=== PATIENT | male | born 1955 | race Caucasian/White ===

== ENCOUNTER 2022-02-05 22:39 | Inpatient (IN) | payer MEDICARE, OTHER ==
[~2022-02-05] VITALS: Ht 170.2 cm; Wt 65.8 kg
--- NOTE | 2022-02-05 22:46 | NUR ---
Pt brought into ER from [facility] for medical clearance. Pt is on a 5250 for GD that started on 02/03, up 02/17. Pt is AOx1. Ambulatory. Calm but needs constant redirection. Pt is noted to be mumbling to himself.
[2022-02-05] MEDS ORDERED: SILV50CR32 TP (23:02)
[2022-02-05] MEDS ORDERED: OLAN5TAB70 PO ×2 (23:02)
[2022-02-05 23:15] VITALS: BP 117/72
--- NOTE | 2022-02-05 23:25 | NUR ---
Dr. Hernandez at bedside for MSE
[2022-02-05] MEDS ORDERED: OLANZAPINE 10 MG VIAL IM ONE ×2 (23:45)
--- NOTE | 2022-02-06 00:32 | NUR ---
Report given to Fahad COSME
[2022-02-06] MEDS ORDERED: MAG HYDROX/AL HYDROX/SIMETH 30 ML LIQUID UDC PO PRN (01:15)
[2022-02-06] MEDS ORDERED: MAGNESIUM HYDROXIDE 30 ML LIQUID UDC PO PRN (01:15)
--- NOTE | 2022-02-06 01:17 | NUR ---
Pt. admitted to [facility] room 137A, under care of Dr. Mcmahan and Dr. Ch. Belongs List completed
--- NOTE | 2022-02-06 01:18 | NUR ---
Security escorted to [facility]
[2022-02-06] MEDS: TEMAZEPAM 7.5 MG CAPSULE PO PRN ×2 (01:40→23:03)
[2022-02-06] MEDS: LORAZEPAM 1 MG TABLET PO PRN ×2 (03:02→12:59)
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
[2022-02-06 07:42] VITALS: BP 119/65
[2022-02-06] MEDS ORDERED: SILVER SULFADIAZINE 1% CREAM 50 GM TP SCH (09:00)
--- NOTE | 2022-02-06 09:33 | NUR ---
WOUND CARE CONSULT: PT PRESENTS WITH STAGE 3 SACRAL ULCER, PRESENT ON ADMISSION. RECOMMEND SURGICAL CONSULT. DR ODIN SALCEDO CALLED. RECOMMENDATGIONS MADE FOR SKIN PROTECTION AND WOUND CARE. DISCUSSED WITH NURSING STAFF. IN AGREEMENT WITH PLAN OF CARE. Addendum: 02/06/22 at 0934 by ELLIOT MAURER RN Amended: Links added.
--- NOTE | 2022-02-06 11:00 | NUR ---
Gps/Briefcase Sewer- Had late breakfast, awakened patient, assisted with breakfast, not initiating to feed self . Mumbles, confused. Wound Care Nurse Zaria RN came in to check wound in his sacrococcygeal area, stages 3, recommendation was made , site cleansed with NS, pat dry, hydrogel applied as recommended, covered with foam , secured with tapes. Patient removed his dressings after awhile, , removed diaper , threw coffee at the ULTRASONOGRAPHER Fanta, threw liquids stuff on the floor. Patient observed urinating in the sink in his room, tried to redirect patient but difficulty following directions.
[2022-02-06] MEDS: DIVALPROEX 500 MG TABLET.DR PO SCH ×2 (11:15→17:22)
[2022-02-06] MEDS: OLANZAPINE 5 MG TABLET PO SCH ×2 (12:12→21:08)
--- NOTE | 2022-02-06 13:57 | NUR ---
Gps/Guinea Pig Breeder- Walks around , goes room to room, gets irritable, figity , fiesty being redirected, mumbles, does not have any clue what to do, when taken to the bathroom , will not come out of the bathroom.. Continue to note patient mumbles , and staff has difficulty redirecting patient. Kept patient in the lauren-chair , was disruptive in the group therapy
[2022-02-06 14:14] LABS: HEMATOCRIT 39.5 % (36.7-47.1); MEAN CORPUSCULAR HEMOGLOBIN 32.4 uug (23.8-33.4); MEAN CORPUSCULAR VOLUME 93.1 fL (73.0-96.2); PLATELET COUNT (AUTO) 333 K/uL (152-348)
[2022-02-06 14:26] LABS: BILIRUBIN,TOTAL 0.6 mg/dL (0.2-1.0); CREATININE 0.7 mg/dL (0.6-1.3); MAGNESIUM 2.3 mg/dL (1.8-2.4); POTASSIUM 3.9 mmol/L (3.5-5.1); TOTAL PROTEIN, SERUM 6.7 g/dL (6.4-8.2)
--- NOTE | 2022-02-06 15:38 | NUR ---
ERICK Admit Source: Pt was brought to [facility] on a 5250 hold for a danger to himself and gravely disabled adult. Pt appears homeless. ERICK contacted pt's family member Mai and was unable to speak to her due to a disconnected number. ERICK will continue to work with the pt, family and MD to ensure a safe and proper discharge plan.
--- NOTE | 2022-02-06 15:38 | NUR ---
ERICK Initial Discharge Note: Pt was brought to [facility] on a 5250 hold for a danger to himself and gravely disabled adult. Pt appears homeless. ERICK contacted pt's family member Mai and was unable to speak to her due to a disconnected number. ERICK will continue to work with the pt, family and MD to ensure a safe and proper discharge plan.
--- NOTE | 2022-02-06 16:44 | NUR ---
Gps/Paper Production Engineer- Patient was trying to climbed out of his lauren-chair , difficulty redirecting patient, , confused, disoriented, not making any sense . Monitor safety , gets resistive and appeared to be angry when trying to redirect. Patient ambulates around wanders from room to room.
[2022-02-06] MEDS: SILVER SULFADIAZINE 1% CREAM 50 GM TP SCH (17:00)
[2022-02-06 17:14] VITALS: BP 107/70
--- NOTE | 2022-02-06 18:37 | NUR ---
Gps/Candy Butcher- Remains oob in the dinning room , figity, checking into books and magazines, remains to mumbles trying to communicate but sentences and words are unclear , staff uses gestures to instruct patient for directions , and tasks , does not comprehend
[2022-02-06 20:13] VITALS: BP 116/57
[2022-02-07] MEDS: LORAZEPAM 1 MG TABLET PO PRN (00:14)
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
[2022-02-07] MEDS: DIVALPROEX 500 MG TABLET.DR PO SCH (09:11)
[2022-02-07] MEDS: OLANZAPINE 5 MG TABLET PO SCH ×2 (09:12→20:09)
[2022-02-07] MEDS: SILVER SULFADIAZINE 1% CREAM 50 GM TP SCH ×2 (09:12→17:00)
[2022-02-07 11:24] LABS: BILIRUBIN,TOTAL 0.6 mg/dL (0.2-1.0); CREATININE 0.7 mg/dL (0.6-1.3); TOTAL PROTEIN, SERUM 7.4 g/dL (6.4-8.2)
--- NOTE | 2022-02-07 12:47 | NUR ---
Gps/High School Admissions Representative- Re -offered routine meds, kept removing /spitting it out, instructed, encouraged to swallow his medications, , noting patient starting to get angry , facial expressions eyes wide open, unclear words, emphasizing . Approchaed patient in a calm manner , redirecting patient using gestures
--- NOTE | 2022-02-07 16:00 | NUR ---
Gps/Back Winder- Wanders around , in the activity room figity , pushing and rearranging chair and tables. Difficulty redirecting patient
[2022-02-07] MEDS ORDERED: diphenhydrAMINE 50 MG/1 ML VIAL IM ONE (16:30)
[2022-02-07] MEDS ORDERED: LORAZEPAM 2 MG/1 ML VIAL IM ONE (16:30)
[2022-02-07] MEDS ORDERED: HALOPERIDOL 5 MG TABLET PO ONE (16:30)
[2022-02-07] MEDS ORDERED: HALOPERIDOL LACTATE 5 MG/1 ML VIAL IM ONE (16:45)
--- NOTE | 2022-02-07 16:51 | NUR ---
Gps/Spooler Rubber Strand As commercial insurance underwriter openned the refrigerator for apple sauce, patient came towards the commercial insurance underwriter , trying to grabbed her arm and trying to get the keys from her, pushing the refrigerator to block commercial insurance underwriter from getting out the door.Engineering Scientist called for help . Web Communications Specialist Jade called Dhiraj LUNCHROOM OPERATOR was informed of the patient's behavior, orders received,.
[2022-02-07] MEDS: DIVALPROEX SPRINKLE 125 MG CAP.SPRINK PO SCH (17:00)
--- NOTE | 2022-02-08 06:40 | NUR ---
GPS: Remain uncooperative with care, patient is very disorganized. slept 6.15 hrs through the night. resting in bed comfortably.
[2022-02-08] MEDS: OLANZAPINE 5 MG TABLET PO SCH ×2 (08:33→21:49)
[2022-02-08] MEDS: DIVALPROEX SPRINKLE 125 MG CAP.SPRINK PO SCH ×2 (08:33→17:32)
[2022-02-08] MEDS ORDERED: LORAZEPAM 2 MG/1 ML VIAL IM ONE (09:00)
[2022-02-08] MEDS ORDERED: HALOPERIDOL LACTATE 5 MG/1 ML VIAL IM ONE (09:00)
[2022-02-08] MEDS ORDERED: diphenhydrAMINE 50 MG/1 ML VIAL IM ONE (09:00)
[2022-02-08] MEDS: SILVER SULFADIAZINE 1% CREAM 50 GM TP SCH ×2 (09:10→17:00)
--- NOTE | 2022-02-08 09:15 | NUR ---
Gps/Other Spatial Scientist- Patient started to urinate in front of the front door,, difficulty redirecting patient, came sitting on the front by the Nurses Station, spilling water all over the place, resistive to care, confused, disoriented, poor insight Machine Loader Jade received order from Dhiraj FAINA .Patient assisted, to his room, into bed . Continue to monitor safety.
--- NOTE | 2022-02-08 09:37 | NUR ---
Gps/Web Services Developer- Garcia Lyon DNP in to see patient, was informed of labs. results,(K+ 3.2, Bun 23, elevated AST,ALT)orders received.
[2022-02-08] MEDS ORDERED: POTASSIUM CHLORIDE 20 MEQ TAB.PRT.SR PO ONE (09:45)
[2022-02-08] MEDS: ENSURE ENLIVE (VAN) 240 ML LIQUID PO SCH ×3 (10:15→17:33)
[2022-02-08] MEDS: LORAZEPAM 1 MG TABLET PO PRN (20:50)
[2022-02-08] MEDS: TEMAZEPAM 7.5 MG CAPSULE PO PRN (23:08)
--- NOTE | 2022-02-09 06:33 | NUR ---
Received to care, ambulating/wandering about unit with a semi steady gait. Easily agitated. Compliant with medications. PRN ativan and restoril were given at bedtime. Assisted to bed around midnight, and slept most of the night. Assisted with urinal. No distress noted.
[2022-02-09] MEDS: SILVER SULFADIAZINE 1% CREAM 50 GM TP SCH ×2 (09:00→17:00)
[2022-02-09] MEDS: LORAZEPAM 1 MG TABLET PO PRN ×3 (09:02→23:12)
[2022-02-09] MEDS: ENSURE ENLIVE (VAN) 240 ML LIQUID PO SCH ×3 (09:02→17:00)
[2022-02-09] MEDS: OLANZAPINE 5 MG TABLET PO SCH ×2 (09:02→21:16)
[2022-02-09] MEDS: DIVALPROEX SPRINKLE 125 MG CAP.SPRINK PO SCH ×2 (09:02→18:10)
[2022-02-09] MEDS ORDERED: OLANZAPINE 5 MG TABLET PO ONE (17:00)
--- NOTE | 2022-02-09 18:34 | NUR ---
GPS: Nursing Notes: Destructive Behavior To Others: Patient is awake and responding to his name, poor insight, impaired judgment, resistant with nursing care, confused, disoriented, disorganized, laying down on the floor, pacing in his room half naked, urinating on the floor, resistant with nursing care, unpredictable behavior, labile, resistant with nursing care, unable to formulate a viable plan for self care, continue with treatment plan.
[2022-02-09] MEDS ORDERED: OLANZAPINE 5 MG TABLET PO SCH (21:00)
[2022-02-10] MEDS: TEMAZEPAM 7.5 MG CAPSULE PO PRN (00:56)
--- NOTE | 2022-02-10 05:24 | NUR ---
Received to care, in dining room, mumbling incoherently, carrying around a shopping bsg containing his things. No interactions with peers. No aggressive behavior noted.Compliant with medications. PRN Ativan and Restoril, were given at bedtime, but he wandered abouut the unit, slept in a chair in the hallway, eventually making it to his room, and going to sleep, towards the end of the night. as of now, he continues to sleep. No distress noted.
[2022-02-10 08:00] VITALS: BP 106/75
[2022-02-10] MEDS: LORAZEPAM 1 MG TABLET PO PRN ×2 (08:12→21:58)
[2022-02-10] MEDS: DIVALPROEX SPRINKLE 125 MG CAP.SPRINK PO SCH ×2 (08:44→17:09)
[2022-02-10] MEDS: OLANZAPINE 5 MG TABLET PO SCH ×3 (08:44→17:09)
[2022-02-10] MEDS: ENSURE ENLIVE (VAN) 240 ML LIQUID PO SCH ×3 (08:44→17:00)
[2022-02-10] MEDS: SILVER SULFADIAZINE 1% CREAM 50 GM TP SCH ×2 (08:45→17:00)
[2022-02-10] MEDS: risperiDONE 1 MG TABLET PO SCH ×2 (12:59→17:11)
--- NOTE | 2022-02-10 13:20 | NUR ---
GPS: Nursing Notes: Destructive Behavior To Others: Patient is awake and responding to his name, impaired judgment, resistant with nursing care, disorganized, episodes of hoarding trash, confused, pressured and slurred speech, redirected and reoriented during shift, unable to formulate a viable plan for self care, unkempt appearance, episodes of laying down on the floor, urinating on the floor, wandering around the unit aimlessly, continue to monitor for safety, continue with treatment plan.
[2022-02-10 16:42] VITALS: BP 114/79
[2022-02-10 19:58] VITALS: BP 111/72
[2022-02-10] MEDS: TEMAZEPAM 15 MG CAPSULE PO SCH (20:24)
--- NOTE | 2022-02-11 05:40 | NUR ---
Received to care, sitting on the flooor of his room, mumbling to himself. Went to sleep, after taking his medications. No distress, noted.
[2022-02-11] MEDS: DIVALPROEX SPRINKLE 125 MG CAP.SPRINK PO SCH ×2 (09:17→17:25)
[2022-02-11] MEDS: ENSURE ENLIVE (VAN) 240 ML LIQUID PO SCH ×3 (09:18→17:25)
[2022-02-11] MEDS: SILVER SULFADIAZINE 1% CREAM 50 GM TP SCH ×2 (09:18→17:00)
[2022-02-11] MEDS: risperiDONE 1 MG TABLET PO SCH ×3 (09:18→17:25)
--- NOTE | 2022-02-11 14:55 | NUR ---
Received patient awake in his room. A/O X 0. Pt. is disoriented, disorganized, flat, confused, no interactive, fixated on rituals such as placing books and food on the floor and taking his medications placed lined up in front of him. Pt. is disheveled and refuses shower. Pt. refuses vital signs. Compliant with medications. Pt. ambulates independently. Denies SI/HI AH/VH. Requires more than minimal assistance with ADL. Pt. gets confused sometimes and pees in the sink and trash bags. Requires frequent prompts and redirection. Reassurance given. Fall and safety precautions implemented.
[2022-02-11] MEDS: TEMAZEPAM 15 MG CAPSULE PO SCH (20:44)
--- NOTE | 2022-02-11 21:35 | NUR ---
received patient in the dayroom. he is noted sitting in a chair. he is A/O x1 he is forgetful, poor eye contact. poor historian. he is noted talking to himself and responding to internal stimuli. mood is irritable. affect is flat. Patient requires multiple redirection multiple reassurance. he is reassured for his safety. safety and fall precautions are in place. he refused V/S. pt was given PO FLUIDS AND SNACKS. will continue to monitor
--- NOTE | 2022-02-12 03:20 | NUR ---
Patient used the restroom. he had a large BM then he stood by his door room and he was noted mumbling and praying. He is now noted sitting in a chair next to his bed, his eyes are closed and he continue mumbling and praying. will continue to monitor.
[2022-02-12] MEDS: LORAZEPAM 1 MG TABLET PO PRN (06:18)
[2022-02-12 07:30] VITALS: BP 120/74
[2022-02-12] MEDS: DIVALPROEX SPRINKLE 125 MG CAP.SPRINK PO SCH ×2 (09:11→16:14)
[2022-02-12] MEDS: risperiDONE 1 MG TABLET PO SCH ×3 (09:15→16:14)
[2022-02-12] MEDS: ENSURE ENLIVE (VAN) 240 ML LIQUID PO SCH ×3 (09:16→16:18)
[2022-02-12] MEDS: SILVER SULFADIAZINE 1% CREAM 50 GM TP SCH ×2 (09:16→16:19)
--- NOTE | 2022-02-12 09:30 | NUR ---
Social Work Coordination of Care: Loan Analyst faxed patient's referral packet including: History and Physical, Consultation, Progress Notes, Medication List and Labs to the following facilities for review and possible mcfp placement: [facility] ([phone]).
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
--- NOTE | 2022-02-12 12:02 | NUR ---
Discharge Update: Shabana from admissions at [facility] ([phone]) contacted and notified that pt is accepted to their facility upon discharge.
--- NOTE | 2022-02-12 15:54 | NUR ---
Gps/Rail Filler- Multiple patches of scabs on his forearms , skin dry and tenting. Had a shower this am, refusing wound care to sacrococcygeal area, silvadene cream was able to applied. Patient wanders around , mumbles poor insight , was able to feed self ind. after set up
[2022-02-12] MEDS: TEMAZEPAM 15 MG CAPSULE PO SCH (21:14)
[2022-02-13] MEDS: LORAZEPAM 1 MG TABLET PO PRN (06:47)
[2022-02-13 07:30] VITALS: BP 122/70
[2022-02-13] MEDS: SILVER SULFADIAZINE 1% CREAM 50 GM TP SCH ×2 (08:54→16:24)
[2022-02-13] MEDS: risperiDONE 1 MG TABLET PO SCH ×3 (08:54→16:44)
[2022-02-13] MEDS: DIVALPROEX SPRINKLE 125 MG CAP.SPRINK PO SCH ×2 (08:54→16:23)
[2022-02-13] MEDS: ENSURE ENLIVE (VAN) 240 ML LIQUID PO SCH ×3 (08:54→16:23)
--- NOTE | 2022-02-13 10:30 | NUR ---
TGps/Shift Supervisor Melting -Refused lab . draws this am,, was rescheduled for tomorrow. report was given to Mark MOYA .
--- NOTE | 2022-02-13 14:57 | NUR ---
Gps/Dial Marker- Constantly needing to be redirected, gets disruptive during his group tx
[2022-02-13 16:00] VITALS: BP 117/64
[2022-02-13 20:00] VITALS: BP 120/55
[2022-02-13] MEDS: TEMAZEPAM 15 MG CAPSULE PO SCH (20:18)
[2022-02-14] MEDS: risperiDONE 1 MG TABLET PO SCH ×3 (08:24→16:40)
[2022-02-14] MEDS: ACETAMINOPHEN 325 MG TABLET PO PRN ×2 (08:24→20:10)
[2022-02-14] MEDS: DIVALPROEX SPRINKLE 125 MG CAP.SPRINK PO SCH ×2 (08:24→16:39)
[2022-02-14] MEDS: ENSURE ENLIVE (VAN) 240 ML LIQUID PO SCH ×3 (08:24→16:40)
[2022-02-14] MEDS: SILVER SULFADIAZINE 1% CREAM 50 GM TP SCH ×2 (08:34→16:40)
--- NOTE | 2022-02-14 13:23 | NUR ---
GPS: Nursing Notes: Destructive Behavior To Others: Patient is awake and responding to his name, gets easily angry and irritable when redirected, episodes of striking out when assisting him with ADL's, continue with pressured and slurred speech, disoriented, disorganized, confused, urinating on self and the floor, unkempt appearance, poor grooming, wandering around the unit aimlessly, intrusive, getting into pt's room, unable to formulate a viable plan for self care, episodes of hoarding trash in a paper bag and carrying it everywhere, redirected and reoriented during shift, setting limits, but unable to follow directions, continue to monitor for safety, continue with treatment plan.
[2022-02-14] MEDS: TEMAZEPAM 15 MG CAPSULE PO SCH (20:11)
[2022-02-14] MEDS: LORAZEPAM 1 MG TABLET PO PRN (21:41)
--- NOTE | 2022-02-15 03:34 | NUR ---
Patient up all night so far. Bizarre behavior, flicking the lights on and off in his room. Washing his pants in the toilet , making loud garbled noises. This appeals writer was however able to give the patient medications without difficulty. Patient continues to refuse VS to be taken and will not tolerate a roommate. Safety Stratiges are in place and staff will keep monitoring the patient for any behavior escalation and aggression.
[2022-02-15 08:04] VITALS: BP 118/72
[2022-02-15] MEDS: DIVALPROEX SPRINKLE 125 MG CAP.SPRINK PO SCH ×2 (08:22→16:27)
[2022-02-15] MEDS: ENSURE ENLIVE (VAN) 240 ML LIQUID PO SCH ×3 (08:23→16:28)
[2022-02-15] MEDS: SILVER SULFADIAZINE 1% CREAM 50 GM TP SCH ×2 (08:23→16:28)
[2022-02-15] MEDS: risperiDONE 1 MG TABLET PO SCH ×3 (08:23→16:28)
[2022-02-15] MEDS: ACETAMINOPHEN 325 MG TABLET PO PRN (08:23)
--- NOTE | 2022-02-15 11:20 | NUR ---
GPS: Nursing Notes: Destructive Behavior To Others: Patient is awake and responding to his name, impaired judgment, resistant with nursing care, episodes of striking out when assisting him with ADL's, bizarre behavior, urinating on self, pacing in his room half naked, washing his pants in the sink, redirected and reoriented during shift, setting limits, but unable to follow directions, pressured and slurred speech, gets easily angry when redirected, poor insight, continue to monitor for safety, continue with treatment plan.
[2022-02-15 16:13] VITALS: BP 149/79
[2022-02-15 19:32] VITALS: BP 101/54
[2022-02-15] MEDS ORDERED: TRAZODONE 50 MG TABLET PO SCH (21:00)
[2022-02-15] MEDS: TEMAZEPAM 15 MG CAPSULE PO SCH (21:21)
[2022-02-16 08:00] VITALS: BP 138/76
[2022-02-16] MEDS: DIVALPROEX SPRINKLE 125 MG CAP.SPRINK PO SCH ×2 (08:00→17:30)
[2022-02-16] MEDS: SILVER SULFADIAZINE 1% CREAM 50 GM TP SCH ×2 (08:01→17:00)
[2022-02-16] MEDS: risperiDONE 1 MG TABLET PO SCH ×3 (08:01→17:30)
[2022-02-16] MEDS: ENSURE ENLIVE (VAN) 240 ML LIQUID PO SCH ×3 (08:08→17:32)
--- NOTE | 2022-02-16 15:42 | NUR ---
Received patient awake in his room. Pt. is responding a internal stimuli, slurred speech, does not interact with others. odd behaviors such as peeing in the TV room sink, being naked while walking in the hallway, putting all food or sheets on the floor. Patient is cooperative with care, and compliant with medications. Incontinent. Requires more than minimal assistance with ADL. Pt. appearance is dirty and disheveled, refuses shower. Requires frequent prompts and redirection. Reassurance given. Fall and safety precautions implemented.
[2022-02-16 16:39] VITALS: BP 111/74
[2022-02-16 19:52] VITALS: BP 126/72
[2022-02-16] MEDS: TEMAZEPAM 15 MG CAPSULE PO SCH (20:45)
[2022-02-16] MEDS ORDERED: risperiDONE 2 MG TABLET PO SCH (21:00)
--- NOTE | 2022-02-17 06:47 | NUR ---
Patient awake hyperverbal, appears responding to internal stimuli, Patient mumbles word, unable to care have meaning conversation, stayed in his room most the night, no complain of pain, cooperative with medications and care at this time. cont to monitor.
[2022-02-17 07:30] VITALS: BP 124/85
[2022-02-17 08:18] LABS: HEMATOCRIT 38.2 % (36.7-47.1); MEAN CORPUSCULAR HEMOGLOBIN 31.9 uug (23.8-33.4); MEAN CORPUSCULAR VOLUME 94.6 fL (73.0-96.2); PLATELET COUNT (AUTO) 345 K/uL (152-348)
[2022-02-17] MEDS: DIVALPROEX SPRINKLE 125 MG CAP.SPRINK PO SCH (08:33)
[2022-02-17] MEDS: BENZTROPINE MESYLATE 0.5 MG TABLET PO SCH ×2 (08:34→12:29)
[2022-02-17] MEDS: ENSURE ENLIVE (VAN) 240 ML LIQUID PO SCH ×2 (08:34→12:30)
[2022-02-17] MEDS: risperiDONE 1 MG TABLET PO SCH ×2 (08:34→12:29)
[2022-02-17] MEDS: SILVER SULFADIAZINE 1% CREAM 50 GM TP SCH (08:34)
[2022-02-17 08:57] LABS: ALANINE AMINOTRANSFERASE 21 U/L (16-63); ALKALINE PHOSPHATASE 54 U/L (50-136); ASPARTATE AMINOTRANSFERASE 17 U/L (15-37); BILIRUBIN,TOTAL 0.4 mg/dL (0.2-1.0); CARBON DIOXIDE 29 mmol/L (21-32); CHLORIDE 103 mmol/L (98-107); CREATININE 0.7 mg/dL (0.6-1.3); GLUCOSE 88 mg/dL (74-106); POTASSIUM 4.3 mmol/L (3.5-5.1); TOTAL PROTEIN, SERUM 6.8 g/dL (6.4-8.2); UREA NITROGEN, BLOOD 13 mg/dL (7-18)
--- NOTE | 2022-02-17 08:58 | NUR ---
ERICK Discharge Note: Pt will be discharged to [facility] [address] [place] [address] ([phone]) via Ambulance transportation at 11AM. ERICK spoke with admin coordinator, Agustín at the facility who states they are ready to accept the patient today. Pt is aware and agreeable with discharge plans. Pt is alert and oriented x0, is unable to plan for self-care at this time; however, is willing to accept care at SNF. Pt denies any suicidal or homicidal ideation. Pt will follow-up at the facility with Psychiatrist, Dr. Mcmahan and Corrective Therapist, Dr. Glover. Pt presents with calm mood and congruent affect. PHARMACY: [place] ([phone] [address] [place] [address]. Patient signed the homeless waiver upon discharge and a copy was placed in the chart. Homeless resources were provided and include [address] information line for shelters and homeless resources. A copy of all resources given to patient was also placed in the chart.
[2022-02-17] MEDS ORDERED: CEphaleXIN 500 MG CAPSULE PO ONE (10:15)
--- NOTE | 2022-02-17 10:37 | NUR ---
GPS: Nursing Notes: Refuse for Pictures to be Taken: Patient is refusing for pictures to be taken of his wound and extremity, uncooperative at this time, continue with discharge process.
[2022-02-17 12:21] LABS: VALPROIC ACID < 3 ug/mL (50-100)
[2022-02-17] MEDS: ACETAMINOPHEN 325 MG TABLET PO PRN (12:29)
--- NOTE | 2022-02-17 13:20 | NUR ---
ALL LAB RESULT REPOTED TO DR. MATAMOROS , PATIENT DELIMBER OPERATOR NOW VIA AMBULANCE TO SNF.
--- NOTE | 2022-02-17 13:30 | NUR ---
GPS: Nursing Note: Discharge Notes: Patient is awake and responding to his name, compliant with his medications, disorganize, disoriented, wandering around the unit, impaired judgment, denies SI/HI, denies AH/VH, denies pain or discomfort, denies SOB, discharge to [facility] at [address] [place] [address] . Patient will follow up with Dr. Mcmahan (psychiatrist) and Dr. Glover (tool design draftsperson) for aftercare at the facility, took all his belongings with him, transported to facility via ambulance, report given to Malvin, RN power transformer repair supervisor, facility's nurse - Malvin informed his of sacral stage 3 ulcer, POA and LLE cellulitis, facility to continue with treatment.
== END 2022-02-17 13:30 | DRG 885 ==
LOC: ER 22:48 → GPS 23:45
PROVIDERS: ADMIT Psychiatry & Neurology Psychosomatic Medicine; ATTEND Nurse Practitioner Acute Care
DX: F25.0 Schizoaffective disorder, bipolar type (principal); L89.153 Pressure ulcer of sacral region, stage 3; L03.116 Cellulitis of left lower limb; Z59.00 Homelessness unspecified; G20 Parkinson's disease; S31.000A Unspecified open wound of lower back and pelvis without penetration into retroperitoneum, initial encounter; E88.09 Other disorders of plasma-protein metabolism, not elsewhere classified; F94.0 Selective mutism
CPT/HCPCS: 36415; 80164; 83735; 85025; 87806; 97161; A4663; A6209; J1200; J1630; J2060; J2358

== ENCOUNTER 2022-02-19 16:40 | Inpatient (IN) | payer MEDICARE, OTHER ==
[~2022-02-19] VITALS: Ht 170.2 cm; Wt 65.8 kg
[~2022-02-19 16:40] MED LIST: SILV50CR32 TP
[2022-02-19] MEDS ORDERED: OLANZAPINE 10 MG VIAL IM ONE ×2 (17:15→17:30)
[2022-02-19] MEDS ORDERED: VANCOMYCIN IV 1,000 MG in IV DEXTROSE 5% 250 ML IV ONE (18:00)
[2022-02-19] MEDS ORDERED: LORAZEPAM 2 MG/1 ML VIAL IM ONE (18:15)
[2022-02-19] MEDS ORDERED: LORAZEPAM 2 MG/1 ML VIAL ONE (18:17)
[2022-02-19 18:19] LABS: *BILIRUBIN,URIN NEGATIVE (NEGATIVE); *BLOOD, URINE NEGATIVE (NEGATIVE); *CLARITY,URINE CLEAR (CLEAR); *COLOR,URINE YELLOW (YELLOW); *KETONES,URINE NEGATIVE (NEGATIVE); *UROBILINOGEN,URINE 0.2 E.U./dl (NORMAL); LEUKOCYTE ESTERASE ,URINE NEGATIVE (NEGATIVE); NITRITE, URINE NEGATIVE (NEGATIVE); PH,URINE 8.5 (5.0-8.0); UGLUCOSE NEGATIVE (NEGATIVE)
[2022-02-19] MEDS ORDERED: VANCOMYCIN IV 200 ML ONE (18:32)
[2022-02-19 18:36] LABS: *AMPHETAMINE, URINE NEGATIVE (NEGATIVE); *CANNABINOID, URINE NEGATIVE (NEGATIVE); *COCCAINE, URINE NEGATIVE (NEGATIVE); *OPIATE, URINE NEGATIVE (NEGATIVE); *PHENCYCLIDINE SCREEN,URINE NEGATIVE (NEGATIVE)
--- NOTE | 2022-02-19 19:01 | NUR ---
Report recieved from dayshift RN. pt currently resting in bed, vital signs stable.
[2022-02-19 19:15] LABS: HEMATOCRIT 37.8 % (36.7-47.1); MEAN CORPUSCULAR HEMOGLOBIN 31.9 uug (23.8-33.4); MEAN CORPUSCULAR VOLUME 94.7 fL (73.0-96.2); PLATELET COUNT (AUTO) 320 K/uL (152-348)
[2022-02-19] MEDS ORDERED: prostat PO (19:19)
[2022-02-19] MEDS ORDERED: FERR325T28 PO (19:19)
[2022-02-19] MEDS ORDERED: ZINC220C6 PO (19:19)
[2022-02-19] MEDS ORDERED: TEMA15CA PO (19:19)
[2022-02-19] MEDS ORDERED: CEPH500C2 PO (19:19)
[2022-02-19] MEDS ORDERED: MAGN400O6 PO (19:19)
[2022-02-19] MEDS ORDERED: MULT-213 PO (19:19)
[2022-02-19] MEDS ORDERED: ASCO500T21 PO (19:19)
[2022-02-19] MEDS ORDERED: MAG30ORA PO (19:19)
[2022-02-19] MEDS ORDERED: DIVA500T54 PO (19:19)
[2022-02-19] MEDS ORDERED: BENZ0.5T43 PO (19:19)
[2022-02-19] MEDS ORDERED: ACET-2154 PO (19:19)
[2022-02-19] MEDS ORDERED: RISP2TAB85 PO (19:19)
[2022-02-19 19:29] LABS: CARBON DIOXIDE 28 mmol/L (21-32); CHLORIDE 105 mmol/L (98-107); CREATININE 0.9 mg/dL (0.6-1.3); GLUCOSE 88 mg/dL (74-106); POTASSIUM 3.8 mmol/L (3.5-5.1); UREA NITROGEN, BLOOD 14 mg/dL (7-18)
[2022-02-19 19:39] LABS: ETHANOL < 3 MG/DL (0-0)
[2022-02-19 19:41] LABS: THYROID STIMULATING HORMONE 3.722 mIU/mL (0.358-3.740)
[2022-02-19 19:44] LABS: ASPARTATE AMINOTRANSFERASE 18 U/L (15-37); BILIRUBIN,DIRECT 0.1 mg/dL (0.0-0.2)
[2022-02-19 20:00] LABS: ALANINE AMINOTRANSFERASE 21 U/L (16-63); ALKALINE PHOSPHATASE 54 U/L (50-136); BILIRUBIN,TOTAL 0.4 mg/dL (0.2-1.0); TOTAL PROTEIN, SERUM 6.6 g/dL (6.4-8.2)
[2022-02-19 21:01] LABS: ACETAMINOPHEN < 2.0 ug/mL (10-30)
--- NOTE | 2022-02-20 01:04 | NUR ---
Report given to Deysi GIPSON MHU.
--- NOTE | 2022-02-20 02:06 | NUR ---
pt taken to [facility] via [facility]. escorted by security.
[2022-02-20] MEDS ORDERED: MAGNESIUM HYDROXIDE 30 ML LIQUID UDC PO PRN (02:15)
[2022-02-20] MEDS ORDERED: MAG HYDROX/AL HYDROX/SIMETH 30 ML LIQUID UDC PO PRN (02:15)
[2022-02-20] MEDS ORDERED: BLOOD SUGAR DIAGNOSTIC 1 EACH STRIP VI ONE (02:15)
--- NOTE | 2022-02-20 03:51 | NUR ---
PATIENT RECEIVED VIA GURNEY FROM ER AT 0210. PATIENT ALERT/ORIENTED X1 PATIENT IS UNKEMPT AND DISHEVELED. PATIENT HAS GARBLED SPEECH. PATIENT IS AGITATED, RESTLESS, DISORIENTED, COMBATIVE, AND CONFUSED. PATIENT IS UNABLE TO ANSWER ANY QUESTIONS DUE TO ALTERED MENTAL STATUS. PATIENT URINATE IN HALLWAY, EVS CALLED TO CLEAN. PATIENT HAS BILATERAL CELLULITES TO LOWER EXTREMITIES PICTURES RENDERED. PATIENT RECEIVED ATIVAN 1 MG IM @ 1816 IN ER, HE ALSO RECEIVED ZYPREXA 10 MG IM @ 1716 IN ER. PATIENT REQUIRES CONSTANT REDIRECTION. PATIENT IS UNPREDICTABLE. SAFETY MEASURES RENDERED.
[2022-02-20] MEDS: LORAZEPAM 1 MG TABLET PO PRN ×2 (04:10→08:15)
--- NOTE | 2022-02-20 09:46 | NUR ---
Firearms Report: Corporate Compliance Officer completed and submitted a DOJ firearms report for 5150 grave disability certifications. A copy of report has been placed in patient chart.
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
[2022-02-20] MEDS: risperiDONE 2 MG TABLET PO SCH ×2 (14:19→17:22)
[2022-02-20] MEDS: DIVALPROEX 500 MG TABLET.DR PO SCH ×2 (14:19→17:23)
--- NOTE | 2022-02-20 15:20 | NUR ---
Gps/Food Assembler Commissary Kitchen- Continue to wanders around, goes room to room, kept going to room 137 , needed constant redirections, gets belligerent when redirected. , urinates all over the place. needing close supervision
--- NOTE | 2022-02-20 15:41 | NUR ---
Called Kira Dawkins at [phone] around 15:30 to obtain patient's vaccination status. Per Malvin IP nurse report, patient did not receive any Flu, Pneumonia, or Covid vaccine.
[2022-02-20 16:02] VITALS: BP 100/64
[2022-02-20] MEDS: CEphaleXIN 500 MG CAPSULE PO SCH ×2 (17:22→20:39)
[2022-02-20] MEDS: ASCORBIC ACID 500 MG TABLET PO SCH (17:22)
[2022-02-20] MEDS: FERROUS SULFATE 325 MG TABEC PO SCH (17:22)
[2022-02-20] MEDS: SILVER SULFADIAZINE 1% CREAM 50 GM TP SCH (17:30)
[2022-02-20 20:26] VITALS: BP 111/75
[2022-02-20] MEDS: ACETAMINOPHEN 325 MG TABLET PO PRN (20:39)
[2022-02-20] MEDS ORDERED: OLANZAPINE 5 MG TABLET PO SCH (21:00)
[2022-02-20] MEDS: TEMAZEPAM 7.5 MG CAPSULE PO PRN (21:46)
--- NOTE | 2022-02-21 05:33 | NUR ---
Patient was unwilling to stay in a room with another patient. Instead this patient wondered around the unit and kept going into his old room that he had from his previous admit. The patient took paper work out of that room which belonged to another patient. Eventually, the patient ended up in our private room and would not leave. The patient feel asleep on the bed in there and slept for 3.15 and is still asleep. The patient is unable to verbalize his needs d/t garbled , unintelligible words. Safety Stratiges are in place and staff monitoring the patient for any aggressive behavior. None noted during this shift. The patient has been medication compliant.
[2022-02-21 07:30] VITALS: BP 127/69
[2022-02-21] MEDS: FERROUS SULFATE 325 MG TABEC PO SCH ×2 (08:12→18:00)
[2022-02-21] MEDS: risperiDONE 2 MG TABLET PO SCH ×3 (08:12→18:01)
[2022-02-21] MEDS: CEphaleXIN 500 MG CAPSULE PO SCH ×4 (08:13→20:10)
[2022-02-21] MEDS: ASCORBIC ACID 500 MG TABLET PO SCH ×3 (08:13→18:00)
[2022-02-21] MEDS: DIVALPROEX 500 MG TABLET.DR PO SCH ×3 (08:13→18:00)
[2022-02-21] MEDS: SILVER SULFADIAZINE 1% CREAM 50 GM TP SCH ×2 (08:13→18:01)
[2022-02-21] MEDS: ZINC SULFATE 220 MG CAPSULE PO SCH (08:13)
--- NOTE | 2022-02-21 09:50 | NUR ---
Gps/Radiology Manager- Extremely loud, standing by the Nurses station, staff having difficulty redirecting patient . Confused ,disoriented, mumbles , incoherent speech, using his hand gestures. Security was called to assist staff. Dr Mcmahan ordered Zyprexa 10 mg IM. Kept patient in the activity room, monitoring needs and safety.
[2022-02-21] MEDS ORDERED: OLANZAPINE 10 MG VIAL IM ONE (10:15)
[2022-02-21 16:00] VITALS: BP 107/70
[2022-02-21] MEDS: ACETAMINOPHEN 325 MG TABLET PO PRN (20:10)
[2022-02-21] MEDS: OLANZAPINE 2.5 MG TABLET PO SCH (20:11)
[2022-02-21] MEDS: LORAZEPAM 1 MG TABLET PO PRN (20:13)
[2022-02-22] MEDS: TEMAZEPAM 7.5 MG CAPSULE PO PRN ×2 (00:36→23:25)
--- NOTE | 2022-02-22 06:51 | NUR ---
Patients behavior was mostly calm. Total sleep hours were 3.30. The patient urinated on the floor twice. No aggressive behavior seen by this sign writer letterer or painter last night. Continuing to monitor closely for any escalation. Safety Stratiges are in place at this time.
[2022-02-22] MEDS: FERROUS SULFATE 325 MG TABEC PO SCH ×2 (08:12→17:22)
[2022-02-22] MEDS: DIVALPROEX 500 MG TABLET.DR PO SCH ×3 (08:12→17:21)
[2022-02-22] MEDS: risperiDONE 2 MG TABLET PO SCH ×3 (08:12→17:21)
[2022-02-22] MEDS: CEphaleXIN 500 MG CAPSULE PO SCH ×4 (08:12→21:00)
[2022-02-22] MEDS: ASCORBIC ACID 500 MG TABLET PO SCH ×3 (08:13→17:22)
[2022-02-22] MEDS: ZINC SULFATE 220 MG CAPSULE PO SCH (08:13)
[2022-02-22] MEDS: SILVER SULFADIAZINE 1% CREAM 50 GM TP SCH ×2 (08:13→17:22)
[2022-02-22 08:26] LABS: BILIRUBIN,TOTAL 0.5 mg/dL (0.2-1.0); CREATININE 0.8 mg/dL (0.6-1.3); POTASSIUM 3.9 mmol/L (3.5-5.1); TOTAL PROTEIN, SERUM 7.4 g/dL (6.4-8.2)
[2022-02-22 08:35] VITALS: BP 141/75
[2022-02-22] MEDS ORDERED: OLANZAPINE 2.5 MG TABLET PO SCH (09:00)
[2022-02-22] MEDS ORDERED: ENSURE ENLIVE (VAN) 240 ML LIQUID PO SCH (11:15)
[2022-02-22] MEDS: GLUCERNA SHAKE VANILLA 237 ML CAN PO SCH (11:30)
[2022-02-22] MEDS: OLANZAPINE 5 MG TABLET PO SCH ×2 (12:18→17:21)
[2022-02-22 16:05] VITALS: BP 126/78
--- NOTE | 2022-02-22 16:07 | NUR ---
Gps/Lighter- Found asleep sitting up in his chair. Tends to wander around, uses gesture , encouraged to verbalized needs, compliance with his medications. Redirected to use his bathroom couple of times
[2022-02-22] MEDS: OLANZAPINE 2.5 MG TABLET PO SCH (23:22)
[2022-02-22] MEDS: LORAZEPAM 1 MG TABLET PO PRN (23:24)
[2022-02-23] MEDS: LORAZEPAM 1 MG TABLET PO PRN (02:48)
[2022-02-23] MEDS: ACETAMINOPHEN 325 MG TABLET PO PRN (03:08)
[2022-02-23] MEDS: ASCORBIC ACID 500 MG TABLET PO SCH ×3 (03:28→16:28)
[2022-02-23] MEDS: DIVALPROEX 500 MG TABLET.DR PO SCH ×4 (09:00→20:29)
[2022-02-23] MEDS: OLANZAPINE 5 MG TABLET PO SCH ×4 (09:00→20:29)
[2022-02-23] MEDS: CEphaleXIN 500 MG CAPSULE PO SCH ×4 (09:00→20:29)
[2022-02-23] MEDS: GLUCERNA SHAKE VANILLA 237 ML CAN PO SCH (09:00)
[2022-02-23] MEDS: SILVER SULFADIAZINE 1% CREAM 50 GM TP SCH ×2 (09:00→16:30)
[2022-02-23] MEDS: risperiDONE 2 MG TABLET PO SCH ×4 (09:00→20:29)
[2022-02-23] MEDS: ZINC SULFATE 220 MG CAPSULE PO SCH (09:00)
[2022-02-23] MEDS: FERROUS SULFATE 325 MG TABEC PO SCH ×2 (09:00→16:28)
[2022-02-23 15:18] VITALS: BP 102/68
--- NOTE | 2022-02-23 17:55 | NUR ---
patient is Continue to wanders , needed constant redirections, gets belligerent when redirected. , pt refused 9 am and 1 pm routine medication throw all medications on the ground ,urinates all over the place. needs close monitoring.
[2022-02-23 20:02] VITALS: BP 112/62
[2022-02-23] MEDS: TEMAZEPAM 7.5 MG CAPSULE PO PRN (22:09)
[2022-02-24] MEDS: risperiDONE 2 MG TABLET PO SCH ×4 (09:00→20:32)
[2022-02-24] MEDS: SILVER SULFADIAZINE 1% CREAM 50 GM TP SCH ×2 (09:00→16:50)
[2022-02-24] MEDS: FERROUS SULFATE 325 MG TABEC PO SCH ×2 (09:00→16:50)
[2022-02-24] MEDS: ASCORBIC ACID 500 MG TABLET PO SCH ×3 (09:00→16:50)
[2022-02-24] MEDS: DIVALPROEX 500 MG TABLET.DR PO SCH ×3 (09:00→20:33)
[2022-02-24] MEDS: OLANZAPINE 5 MG TABLET PO SCH (09:00)
[2022-02-24] MEDS: CEphaleXIN 500 MG CAPSULE PO SCH ×4 (09:00→20:32)
[2022-02-24] MEDS: ZINC SULFATE 220 MG CAPSULE PO SCH (09:00)
[2022-02-24] MEDS: GLUCERNA SHAKE VANILLA 237 ML CAN PO SCH (09:11)
[2022-02-24] MEDS: chlorproMAZINE 25 MG TABLET PO SCH ×2 (12:41→16:50)
[2022-02-24] MEDS ORDERED: OLANZAPINE 5 MG TABLET PO SCH (13:00)
[2022-02-24 15:03] VITALS: BP 122/83
--- NOTE | 2022-02-24 17:23 | NUR ---
GPS: Nursing Notes: Thought Disorder: Patient is awake and responding to his name, impaired judgment, resistant with nursing care, paranoid behavior, urinating on floor, episodes of striking out when setting limits, hoarding the books from the unit, unkempt appearance, disorganized, poor anger management, unable to formulate a viable plan for self care, wandering around the unit, slurred speech, disoriented, poor grooming, A/Ox1, continue to monitor for safety, continue with treatment plan.
--- NOTE | 2022-02-24 18:10 | NUR ---
GPS: Nursing Notes: Severe Agitation: Patient is awake and responding to name, poor anger management, loud, slurred, and pressured speech, clenching his fists toward staff, intrusive, getting into nursing station, walking into staff personal space and shouting, resistant with nursing care, posturing toward staff, throwing water at staff, Dr. Mcmahan called by charge nurse, setting limits, but unable to be redirected, restless behavior, continue to monitor for safety, continue with treatment plan.
[2022-02-24] MEDS ORDERED: LORAZEPAM 2 MG/1 ML VIAL IM ONE (18:15)
[2022-02-24] MEDS ORDERED: OLANZAPINE 10 MG VIAL IM ONE (18:15)
--- NOTE | 2022-02-24 18:15 | NUR ---
GPS: Nursing Notes: Chemical Restraint: patient continue to be overly disruptive with violent outburst without provocation, setting limits, redirected and reoriented, but unable to follow directions, poor anger management, posturing toward staff, throwing water toward staff, loud and slurred speech, trying to strike out to staff, Dr. Mcmahan ordered: Zyprexa 10mg IM and Ativan 1mg IM STAT X1, R=18, IM medications given at this time, continue to monitor for safety, continue with treatment plan.
--- NOTE | 2022-02-24 18:45 | NUR ---
GPS: Nursing Notes: Reassessment of Chemical Restraint: Patient is awake and responding to his name, R=18, patient became calm, but continue to be disorganized, wandering around the unit, urinating on the floor, IM medications were helpful, continue to monitor for safety, continue with treatment plan.
[2022-02-24 20:00] VITALS: BP 133/98
[2022-02-24] MEDS: TEMAZEPAM 15 MG CAPSULE PO SCH (20:32)
[2022-02-25 07:30] VITALS: BP 90/53
[2022-02-25] MEDS: FERROUS SULFATE 325 MG TABEC PO SCH ×2 (08:54→19:00)
[2022-02-25] MEDS: chlorproMAZINE 25 MG TABLET PO SCH ×5 (08:54→22:36)
[2022-02-25] MEDS: DIVALPROEX 500 MG TABLET.DR PO SCH ×4 (08:55→22:37)
[2022-02-25] MEDS: risperiDONE 2 MG TABLET PO SCH ×4 (08:55→22:36)
[2022-02-25] MEDS: ASCORBIC ACID 500 MG TABLET PO SCH ×3 (08:55→20:00)
[2022-02-25] MEDS: ZINC SULFATE 220 MG CAPSULE PO SCH (08:55)
[2022-02-25] MEDS: GLUCERNA SHAKE VANILLA 237 ML CAN PO SCH (08:56)
[2022-02-25] MEDS: CEphaleXIN 500 MG CAPSULE PO SCH ×4 (08:59→22:36)
[2022-02-25] MEDS: SILVER SULFADIAZINE 1% CREAM 50 GM TP SCH ×2 (09:02→20:00)
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
--- NOTE | 2022-02-25 11:02 | NUR ---
DR MATAMOROS ORDERED EKG FOR PT. CARRIED OUT ORDER.
[2022-02-25 16:00] VITALS: BP 99/65
--- NOTE | 2022-02-25 20:08 | NUR ---
UNABLE TO GIVE 1700 MEDS DUE TO ACCESS PROBLEM WITH PYXIES. CARTRIDGE LOADER NURSES WILL TRY TO GET IT AVAILABLE FOR PT. SEFERNIO MADE AWARE.
[2022-02-25] MEDS ORDERED: chlorproMAZINE 25 MG TABLET PO SCH (21:00)
[2022-02-25] MEDS: TEMAZEPAM 15 MG CAPSULE PO SCH (22:37)
[2022-02-26] MEDS: LORAZEPAM 1 MG TABLET PO PRN (01:01)
--- NOTE | 2022-02-26 06:05 | NUR ---
Received to care, highly visible on unit, talking to self, easily agitated. Compliant with medications, and directable. PRN Ativan was given for restlessness at 0101, and he slept well, after that. As of now, he continues to sleep. No distress, noted.
[2022-02-26 07:30] VITALS: BP 115/72
[2022-02-26] MEDS: ASCORBIC ACID 500 MG TABLET PO SCH ×3 (09:00→17:41)
[2022-02-26] MEDS: GLUCERNA SHAKE VANILLA 237 ML CAN PO SCH (09:00)
[2022-02-26] MEDS: SILVER SULFADIAZINE 1% CREAM 50 GM TP SCH ×2 (09:00→17:00)
[2022-02-26] MEDS: DIVALPROEX 500 MG TABLET.DR PO SCH ×3 (09:27→21:01)
[2022-02-26] MEDS: CEphaleXIN 500 MG CAPSULE PO SCH ×4 (09:27→21:00)
[2022-02-26] MEDS: ZINC SULFATE 220 MG CAPSULE PO SCH ×2 (09:28→09:30)
[2022-02-26] MEDS: chlorproMAZINE 25 MG TABLET PO SCH ×4 (09:28→21:01)
[2022-02-26] MEDS: risperiDONE 2 MG TABLET PO SCH ×4 (09:28→21:00)
[2022-02-26] MEDS: FERROUS SULFATE 325 MG TABEC PO SCH ×2 (09:30→17:41)
[2022-02-26 16:00] VITALS: BP 128/69
--- NOTE | 2022-02-26 16:13 | NUR ---
Gps/Extrusion Former- Remains to wander around needing constant redirections, tends to get aggressive toward the staff, talking out loud. Routine meds. administered with apple sauce. Mumbles, word does not comes out clear.
[2022-02-26 20:00] VITALS: BP 117/75
[2022-02-26] MEDS: TEMAZEPAM 15 MG CAPSULE PO SCH (21:01)
[2022-02-27] MEDS: LORAZEPAM 1 MG TABLET PO PRN ×2 (06:09→18:29)
--- NOTE | 2022-02-27 06:10 | NUR ---
Received to care, talking to self, easily agitated. Compliant with medications, and directable. PRN Ativan was given for agitation at 0609. He slept well, last night.
[2022-02-27 07:30] VITALS: BP 94/64
[2022-02-27] MEDS: ASCORBIC ACID 500 MG TABLET PO SCH ×3 (08:39→16:34)
[2022-02-27] MEDS: risperiDONE 2 MG TABLET PO SCH ×4 (08:39→20:32)
[2022-02-27] MEDS: DIVALPROEX 500 MG TABLET.DR PO SCH ×3 (08:39→20:31)
[2022-02-27] MEDS: FERROUS SULFATE 325 MG TABEC PO SCH ×2 (08:39→16:34)
[2022-02-27] MEDS: chlorproMAZINE 25 MG TABLET PO SCH ×4 (08:39→20:32)
[2022-02-27] MEDS: CEphaleXIN 500 MG CAPSULE PO SCH ×4 (08:39→20:31)
[2022-02-27] MEDS: GLUCERNA SHAKE VANILLA 237 ML CAN PO SCH (08:40)
--- NOTE | 2022-02-27 09:26 | NUR ---
Gps/Poison Information Specialist- Out on the hallway, naked from buttom down , encouraged to put his pajama buttom . Compliant with his routine am meds, given with apple sauce. Lam , wanders , gets aggressive with staff at time, needed to be redirected.
[2022-02-27] MEDS: SILVER SULFADIAZINE 1% CREAM 50 GM TP SCH ×2 (10:35→16:35)
[2022-02-27 17:32] VITALS: BP 102/60
[2022-02-27 20:22] VITALS: BP 97/54
[2022-02-27] MEDS: TEMAZEPAM 15 MG CAPSULE PO SCH (20:32)
[2022-02-27 20:41] VITALS: BP 141/66
--- NOTE | 2022-02-28 04:33 | NUR ---
Received to care, wandering, attempting to grab at staff member. He was redirected, given some food, and calmed down in his room. his B/P was initially low, but improved after taking food and fluids. Bedtime meds were then given, and he has slept well all night.
[2022-02-28 08:08] VITALS: BP 103/66
[2022-02-28] MEDS: ZINC SULFATE 220 MG CAPSULE PO SCH (09:46)
[2022-02-28] MEDS: DIVALPROEX 500 MG TABLET.DR PO SCH ×3 (09:46→20:26)
[2022-02-28] MEDS: CEphaleXIN 500 MG CAPSULE PO SCH ×4 (09:46→20:26)
[2022-02-28] MEDS: chlorproMAZINE 25 MG TABLET PO SCH ×4 (09:46→20:40)
[2022-02-28] MEDS: ASCORBIC ACID 500 MG TABLET PO SCH ×3 (09:46→16:55)
[2022-02-28] MEDS: FERROUS SULFATE 325 MG TABEC PO SCH ×2 (09:46→16:55)
[2022-02-28] MEDS: risperiDONE 2 MG TABLET PO SCH ×4 (09:46→20:26)
[2022-02-28] MEDS: GLUCERNA SHAKE VANILLA 237 ML CAN PO SCH (09:47)
[2022-02-28] MEDS: SILVER SULFADIAZINE 1% CREAM 50 GM TP SCH ×2 (09:48→16:57)
[2022-02-28 16:26] VITALS: BP 95/58
[2022-02-28] MEDS: TEMAZEPAM 15 MG CAPSULE PO SCH (20:27)
--- NOTE | 2022-02-28 20:45 | NUR ---
Patient put the meds cholorpromazine hydrochloride 25mg on his mounth but removed it and throw it on the floor, meds was wasted.
--- NOTE | 2022-03-01 06:35 | NUR ---
PATIENT SLEPT FOR 8HRS, STILL AMBULATE TO HALLWAYS, TALKS TO HIMSELF, UNABLE TO CARRY A MEANINGFUL CONVERSATION. CONT TO MONITOR.
[2022-03-01 07:48] VITALS: BP 99/49
[2022-03-01] MEDS: chlorproMAZINE 25 MG TABLET PO SCH ×5 (09:00→21:00)
[2022-03-01] MEDS: GLUCERNA SHAKE VANILLA 237 ML CAN PO SCH (10:32)
[2022-03-01] MEDS: CEphaleXIN 500 MG CAPSULE PO SCH ×2 (10:32→13:18)
[2022-03-01] MEDS: risperiDONE 2 MG TABLET PO SCH ×4 (10:32→21:18)
[2022-03-01] MEDS: ZINC SULFATE 220 MG CAPSULE PO SCH (10:32)
[2022-03-01] MEDS: FERROUS SULFATE 325 MG TABEC PO SCH ×2 (10:32→17:35)
[2022-03-01] MEDS: SILVER SULFADIAZINE 1% CREAM 50 GM TP SCH ×2 (10:33→17:36)
[2022-03-01] MEDS: ASCORBIC ACID 500 MG TABLET PO SCH ×3 (10:33→17:35)
[2022-03-01] MEDS: DIVALPROEX 500 MG TABLET.DR PO SCH ×3 (10:33→21:18)
[2022-03-01] MEDS: LORAZEPAM 1 MG TABLET PO PRN (13:18)
--- NOTE | 2022-03-01 14:02 | NUR ---
Pt refuses to take thorazine. He is cooperative with taking all other po medications but picks out the thorazine and throws it across the room.
[2022-03-01 16:44] VITALS: BP 128/98
[2022-03-01 20:17] VITALS: BP 107/68
[2022-03-01] MEDS: TEMAZEPAM 15 MG CAPSULE PO SCH (21:19)
--- NOTE | 2022-03-01 21:39 | NUR ---
Pt refused Thorazine PO. Took medication, went to bathroom and flushed the medication down the toilet. Compliant with all other medications.
[2022-03-02 07:53] VITALS: BP 114/57
[2022-03-02] MEDS: DIVALPROEX 500 MG TABLET.DR PO SCH ×4 (09:53→20:16)
[2022-03-02] MEDS: risperiDONE 2 MG TABLET PO SCH (09:53)
[2022-03-02] MEDS: chlorproMAZINE 25 MG TABLET PO SCH ×5 (09:53→20:16)
[2022-03-02] MEDS: ZINC SULFATE 220 MG CAPSULE PO SCH (09:53)
[2022-03-02] MEDS: FERROUS SULFATE 325 MG TABEC PO SCH ×3 (09:54→17:47)
[2022-03-02] MEDS: GLUCERNA SHAKE VANILLA 237 ML CAN PO SCH (09:56)
[2022-03-02] MEDS: SILVER SULFADIAZINE 1% CREAM 50 GM TP SCH ×2 (09:56→17:49)
[2022-03-02] MEDS: CLONAZEPAM 0.5 MG TABLET PO SCH ×4 (10:40→17:47)
[2022-03-02] MEDS: ASCORBIC ACID 500 MG TABLET PO SCH ×4 (10:58→17:52)
[2022-03-02] MEDS: risperiDONE 1 MG TABLET PO SCH ×3 (13:00→17:47)
--- NOTE | 2022-03-02 16:31 | NUR ---
Received patient sleeping in his room. A/O X 0. Pt. is disoriented, confused, does interact. Requires more than minimal assistance with ADL. Compliant with medications most of the time, refuses sometimes. Reassurance given. Fall and safety precautions implemented.
[2022-03-02 20:00] VITALS: BP 120/60
[2022-03-02] MEDS: TEMAZEPAM 15 MG CAPSULE PO SCH (20:16)
--- NOTE | 2022-03-03 06:00 | NUR ---
Received patient in bed, A&0x1. Patient ramains to be mumbling words. Patient compliant with medications. sleep most of the night. Safety measure kept in palce.
[2022-03-03 08:00] VITALS: BP 98/60
[2022-03-03] MEDS: ZINC SULFATE 220 MG CAPSULE PO SCH (08:33)
[2022-03-03] MEDS: DIVALPROEX 500 MG TABLET.DR PO SCH ×3 (08:33→20:31)
[2022-03-03] MEDS: FERROUS SULFATE 325 MG TABEC PO SCH ×2 (08:34→16:59)
[2022-03-03] MEDS: CLONAZEPAM 0.5 MG TABLET PO SCH ×3 (08:34→17:00)
[2022-03-03] MEDS: ASCORBIC ACID 500 MG TABLET PO SCH ×3 (08:34→16:59)
[2022-03-03] MEDS: chlorproMAZINE 25 MG TABLET PO SCH ×5 (08:35→20:31)
[2022-03-03] MEDS: risperiDONE 1 MG TABLET PO SCH ×3 (08:49→17:00)
[2022-03-03] MEDS: GLUCERNA SHAKE VANILLA 237 ML CAN PO SCH (08:50)
[2022-03-03] MEDS: SILVER SULFADIAZINE 1% CREAM 50 GM TP SCH ×2 (08:51→17:00)
[2022-03-03 10:10] LABS: BILIRUBIN,TOTAL 0.5 mg/dL (0.2-1.0); CREATININE 0.9 mg/dL (0.6-1.3); POTASSIUM 4.3 mmol/L (3.5-5.1); TOTAL PROTEIN, SERUM 7.2 g/dL (6.4-8.2)
[2022-03-03 10:20] LABS: HEMATOCRIT 43.8 % (36.7-47.1); MEAN CORPUSCULAR VOLUME 93.9 fL (73.0-96.2); PLATELET COUNT (AUTO) 251 K/uL (152-348)
--- NOTE | 2022-03-03 15:26 | NUR ---
patient is pacing in hallway ,labile mumbling words taking to himself, took all medication excepted Thorazine po , made aware of pt has been refused Thorazine when she made round this morning .will continue monitoring patient.
[2022-03-03 16:00] VITALS: BP 105/59
[2022-03-03 20:00] VITALS: BP 108/61
[2022-03-03] MEDS: TEMAZEPAM 15 MG CAPSULE PO SCH (20:30)
[2022-03-04 07:43] VITALS: BP 110/51
[2022-03-04] MEDS: CLONAZEPAM 0.5 MG TABLET PO SCH ×3 (08:55→17:54)
[2022-03-04] MEDS: DIVALPROEX 500 MG TABLET.DR PO SCH ×3 (08:55→20:42)
[2022-03-04] MEDS: FERROUS SULFATE 325 MG TABEC PO SCH ×2 (08:55→17:16)
[2022-03-04] MEDS: risperiDONE 1 MG TABLET PO SCH ×3 (08:55→17:16)
[2022-03-04] MEDS: chlorproMAZINE 25 MG TABLET PO SCH ×5 (08:55→20:40)
[2022-03-04] MEDS: ASCORBIC ACID 500 MG TABLET PO SCH ×3 (08:56→17:16)
[2022-03-04] MEDS: ZINC SULFATE 220 MG CAPSULE PO SCH (08:56)
[2022-03-04] MEDS: GLUCERNA SHAKE VANILLA 237 ML CAN PO SCH (08:57)
--- NOTE | 2022-03-04 09:31 | NUR ---
Alert, oriented to name.Respond to interaction. Garbled speech, drooling. Compliant with taking of medications. Continent, independent, ambulating to the bathroom.
[2022-03-04] MEDS: SILVER SULFADIAZINE 1% CREAM 50 GM TP SCH ×2 (10:10→17:17)
--- NOTE | 2022-03-04 13:00 | NUR ---
Agitated, angry when given hamburger, saying he's vegetarian. Redirected, requested for vegetarian meal.
[2022-03-04 16:00] VITALS: BP 107/88
--- NOTE | 2022-03-04 17:00 | NUR ---
Ambulating in the hallway. Intrusive to other patients. Redirected.
[2022-03-04] MEDS: BENZTROPINE MESYLATE 0.5 MG TABLET PO SCH (17:16)
[2022-03-04] MEDS: TEMAZEPAM 15 MG CAPSULE PO SCH (20:41)
--- NOTE | 2022-03-05 06:16 | NUR ---
Patient received in bed sleeping with no apparent distress noted. Patient wakes up @2200 with snacks provided, w/c he consumes 100%, patient compliant with medications. Patient noted with improvement as he communicates needs to staff that is more acceptable and understandable. Patient allows the curriculum writer to do his treatment in the legs this time w/c patient never permits before. Patient also shower during shift. Patient well rested as he slept most of the night. safety strategies left in place.
[2022-03-05] MEDS: CLONAZEPAM 0.5 MG TABLET PO SCH ×3 (09:06→17:29)
[2022-03-05] MEDS: BENZTROPINE MESYLATE 0.5 MG TABLET PO SCH ×3 (09:06→17:29)
[2022-03-05] MEDS: DIVALPROEX 500 MG TABLET.DR PO SCH ×3 (09:06→21:31)
[2022-03-05] MEDS: ZINC SULFATE 220 MG CAPSULE PO SCH (09:06)
[2022-03-05] MEDS: FERROUS SULFATE 325 MG TABEC PO SCH ×2 (09:06→17:29)
[2022-03-05] MEDS: ASCORBIC ACID 500 MG TABLET PO SCH ×3 (09:06→17:29)
[2022-03-05] MEDS: chlorproMAZINE 25 MG TABLET PO SCH ×4 (09:06→21:31)
[2022-03-05] MEDS: risperiDONE 1 MG TABLET PO SCH ×3 (09:06→17:29)
[2022-03-05] MEDS: GLUCERNA SHAKE VANILLA 237 ML CAN PO SCH (09:07)
[2022-03-05] MEDS: SILVER SULFADIAZINE 1% CREAM 50 GM TP SCH ×2 (09:07→17:29)
--- NOTE | 2022-03-05 10:34 | NUR ---
GPS: PT RECEIVED AWAKE, DENIES PAIN OR DISCOMFORT. WENT TO NURSES STATION ANXIOUSLY ASKING FOR PEN. PT REDIRECTED, TOOK MEDS AND NO AGITATION NOTED AT THIS TIME. PT PACING THE HALLWAY AT TIMES
--- NOTE | 2022-03-05 11:00 | NUR ---
ERICK Discharge Note: Pt will be discharged to [facility] ([phone]) [address] [place] [address] via Ambulance transportation at 1PM. ERICK spoke with admin coordinator, Lane at the facility who state they are ready to accept the patient today in room 5C. Pt is aware and agreeable with discharge plans. Pt is alert and oriented x1(name), is unable to plan for self-care at this time; however, is willing to accept care at SNF. Pt denies any suicidal or homicidal ideation. Pt will follow-up at the facility with Psychiatrist, Dr. Mcmahan and Body Designer, Belen. Pt presents with calm mood and congruent affect. PHARMACY: [facility] [phone] [id number] [phone].
--- NOTE | 2022-03-05 12:30 | NUR ---
GPS: DR MATAMOROS CAME FOR A VISIT AND PT CAME TO THE NURSES STATION AND STOOD BEHIND THE DOOR AND LOOKS LIKE TRYING TO REACH OR TOUCHING HER, STARTED SCREAMING AND WAS NOT EASILY REDIRECTABLE AND SEVERAL STAFFS WERE INVOLVE TO REDIRECT THE PT. WAS ABLE TO REDIRECT PT BY OFFERING SNACKS. MEDS GIVEN AT LUNCH TIME AND WAS ABLE TO TOLERATE IT. SEEN PACING ON THE HALLWAY. Addendum: 03/05/22 at 1342 by CRISSY FRANCO RN PER DR MATAMOROS, PT DISCHARGE WILL BE CANCELLED TODAY FOR FURTHER OBSERVATION AND TREATMENT.
[2022-03-05 16:00] VITALS: BP 110/57
--- NOTE | 2022-03-05 19:13 | NUR ---
GPS: PT NO AGITATION NOTED THIS AFTERNOON. NOTICE THAT PT NEEDS SPACE WHEN HE'S EATING AND WANTED TO TAKE MEDICATION AFTER MEAL. PT DENIES ANY PAIN OR DISCOMFORT. STAYED IN THE ACTIVITY ROOM AND BUSY WITH HIS BOOKS AND OTHER STUFFS. COMPLIANT WITH MEDICATION AND CARE.
[2022-03-05] MEDS: TEMAZEPAM 15 MG CAPSULE PO SCH (21:30)
[2022-03-05] MEDS: DIVALPROEX 250 MG TABLET.DR PO SCH (21:31)
--- NOTE | 2022-03-06 04:53 | NUR ---
Received initially in bed, sleeping intermittently. Refused vital signs. Came to the nurses station agitated and yelling, but was redirected to the day room. Was given a snack, and took his scheduled medications. Went to bed after about an hour or so, and slept most of the night, coming back to the nurses station a few times, but was directable. Is now in room awake, but calm. Will continue to monitor closely for safety.
[2022-03-06 07:30] VITALS: BP 119/47
[2022-03-06] MEDS: BENZTROPINE MESYLATE 0.5 MG TABLET PO SCH ×3 (08:58→17:27)
[2022-03-06] MEDS: risperiDONE 1 MG TABLET PO SCH ×3 (08:58→17:27)
[2022-03-06] MEDS: DIVALPROEX 500 MG TABLET.DR PO SCH ×3 (08:58→20:49)
[2022-03-06] MEDS: FERROUS SULFATE 325 MG TABEC PO SCH ×2 (08:58→17:27)
[2022-03-06] MEDS: CLONAZEPAM 0.5 MG TABLET PO SCH ×3 (08:58→17:27)
[2022-03-06] MEDS: ZINC SULFATE 220 MG CAPSULE PO SCH (08:58)
[2022-03-06] MEDS: ASCORBIC ACID 500 MG TABLET PO SCH ×3 (08:58→17:27)
[2022-03-06] MEDS: chlorproMAZINE 25 MG TABLET PO SCH ×4 (08:58→20:48)
[2022-03-06] MEDS: GLUCERNA SHAKE VANILLA 237 ML CAN PO SCH (08:59)
[2022-03-06] MEDS: SILVER SULFADIAZINE 1% CREAM 50 GM TP SCH ×2 (08:59→17:37)
--- NOTE | 2022-03-06 13:00 | NUR ---
GPS: RECEIVED PT AWAKE AND DENIES ANY PAIN OR DISCOMFORT. PT SEEN BRINGING BOOKS WALKING AROUND THE HALLWAY. PT SEEN AT THE ACTIVITY ROOM VERY FIXATED WITH HIS BOOKS ARRANGING IT ONE BY ONE, PILING IT UP AND SLOWLY FIXING IT UNTIL HE GETS HIS DESIRED POSITION. NOTICE THAT HE HAS TO FINISH FIRST WHAT HE'S DOING UNTIL HE'LL TAKE THE MEDICATION. PSYCHIATRIST ORDERED TREVIN.
[2022-03-06] MEDS: busPIRone 5 MG TABLET PO SCH ×3 (14:04→20:52)
[2022-03-06 15:32] VITALS: BP 116/58
[2022-03-06 19:53] VITALS: BP 124/89
[2022-03-06] MEDS: DIVALPROEX 250 MG TABLET.DR PO SCH (20:49)
[2022-03-06] MEDS: LORAZEPAM 1 MG TABLET PO PRN (22:22)
[2022-03-06] MEDS ORDERED: chlorproMAZINE 25 MG TABLET PO PRN (23:15)
--- NOTE | 2022-03-07 02:16 | NUR ---
Received to care, stumbling around room, with a very unsteady gait. Anxious, and easily agitated. Assisted with toileting, as he almost fell, and placed in the lauren chair, at nurses station,for safety. Dr. Mcmahan was paged before medications were given, and she discontinued all benzodiazepines, except PRN Ativan. He remained agitated and restless, after routine Meds were given. PRN Ativan ws given at 2222, but was ineffective. PRN HS dose of Thorazine was given at 0053, and he finally went to sleep in the chair, at around 0200. Monitored closely for safety, and will continue close monitoring. No distress noted, at this time.
[2022-03-07 07:30] VITALS: BP 101/60
[2022-03-07] MEDS: ASCORBIC ACID 500 MG TABLET PO SCH ×3 (08:33→16:54)
[2022-03-07] MEDS: ZINC SULFATE 220 MG CAPSULE PO SCH (08:33)
[2022-03-07] MEDS: DIVALPROEX 500 MG TABLET.DR PO SCH ×3 (08:34→16:54)
[2022-03-07] MEDS: GLUCERNA SHAKE VANILLA 237 ML CAN PO SCH (08:34)
[2022-03-07] MEDS: busPIRone 5 MG TABLET PO SCH ×3 (08:34→16:54)
[2022-03-07] MEDS: risperiDONE 2 MG TABLET PO SCH ×2 (08:34→13:00)
[2022-03-07] MEDS: chlorproMAZINE 25 MG TABLET PO SCH ×4 (08:34→20:38)
[2022-03-07] MEDS: FERROUS SULFATE 325 MG TABEC PO SCH ×2 (08:34→16:54)
[2022-03-07] MEDS: BENZTROPINE MESYLATE 1 MG TABLET PO SCH ×3 (08:35→16:54)
[2022-03-07] MEDS: SILVER SULFADIAZINE 1% CREAM 50 GM TP SCH ×2 (08:35→16:54)
[2022-03-07] MEDS ORDERED: risperiDONE 1 MG TABLET PO SCH (09:00)
[2022-03-07] MEDS ORDERED: BENZTROPINE MESYLATE 0.5 MG TABLET PO SCH (09:00)
--- NOTE | 2022-03-07 09:00 | NUR ---
PT CONFUSED, EASILY AGITATED, AND WANDERING UNIT RESPONDING TO INTERNAL STIMULI AND MUMBLING TO SELF. REFUSES TO SIT ON THE JUNIE CHAIR AND KEEPS CLIMBING OUT AND AMBULATING UNIT WITH UNSTEADY GAIT. REQUIRES FREQUENT REDIRECTION AND EXCESSIVE STAFF INTERVENTION. COMPLIANT WITH ALL PO MEDICATIONS EXCEPT FOR DEPAKOTE.
[2022-03-07 12:00] VITALS: BP 116/76
--- NOTE | 2022-03-07 12:11 | NUR ---
PT FOUND ON FLOOR IN BATHROOM AT THIS TIME WITH A SMALL LACERATION TO OCCIPITAL PORTION OF HEAD FROM APPARENT UNWITNESSED FALL. PT WAS AMBULATING AROUND ROOM PRIOR TO STAFF FINDING HIM ON FLOOR, BUT UNABLE TO VERBALIZE EXACTLY WHAT HAPPENED DUE TO SEVERE CONFUSION AND MUMBLING RESPONSES, AND RESPONDING TO INTERNAL STIMULI. DR. ROTH CALLED AND RECEIVED ORDER FOR HEAD CT. DR. MATAMOROS AND IMMIGRATION CASE MANAGER DR. MIGUEL CALLED AND NOTIFIED WITH NO NEW ORDERS. PT DENIES PAIN BY SHAKING HIS HEAD WHEN ASKED. NO ACUTE CHANGES IN BASELINE MENTAL STATUS NOTED. V/S STABLE. 116/76, 18RR, 97 PULSE, 96%RA.
[2022-03-07 16:00] VITALS: BP 101/64
[2022-03-07] MEDS: risperiDONE 1 MG TABLET PO SCH (16:54)
[2022-03-08] MEDS: LORAZEPAM 1 MG TABLET PO PRN ×2 (06:36→20:19)
--- NOTE | 2022-03-08 06:38 | NUR ---
Patient slept well last night, but woke with agitation, banging the reclining table, no complain of pain, assisted to toilet for bladder elimination, dress the patient, given ativan 1mg po for anxiety/agitation, given food and water. cont to monitor.
[2022-03-08 07:26] LABS: HEMATOCRIT 43.1 % (36.7-47.1); MEAN CORPUSCULAR HEMOGLOBIN 32.3 uug (23.8-33.4); MEAN CORPUSCULAR VOLUME 94.2 fL (73.0-96.2); PLATELET COUNT (AUTO) 185 K/uL (152-348)
[2022-03-08 07:58] LABS: BILIRUBIN,TOTAL 0.3 mg/dL (0.2-1.0); CREATININE 0.9 mg/dL (0.6-1.3); POTASSIUM 4.2 mmol/L (3.5-5.1); TOTAL PROTEIN, SERUM 6.5 g/dL (6.4-8.2)
[2022-03-08] MEDS: DIVALPROEX 500 MG TABLET.DR PO SCH ×2 (08:43→16:33)
[2022-03-08] MEDS: chlorproMAZINE 25 MG TABLET PO SCH ×4 (08:43→20:17)
[2022-03-08] MEDS: busPIRone 5 MG TABLET PO SCH ×3 (08:43→16:33)
[2022-03-08] MEDS: ZINC SULFATE 220 MG CAPSULE PO SCH (08:43)
[2022-03-08] MEDS: FERROUS SULFATE 325 MG TABEC PO SCH ×2 (08:43→16:33)
[2022-03-08] MEDS: SILVER SULFADIAZINE 1% CREAM 50 GM TP SCH ×2 (08:44→16:33)
[2022-03-08] MEDS: risperiDONE 1 MG TABLET PO SCH ×3 (08:44→16:33)
[2022-03-08] MEDS: ASCORBIC ACID 500 MG TABLET PO SCH ×3 (08:44→16:33)
[2022-03-08] MEDS: GLUCERNA SHAKE VANILLA 237 ML CAN PO SCH (08:44)
[2022-03-08] MEDS: BENZTROPINE MESYLATE 1 MG TABLET PO SCH ×3 (08:44→16:33)
--- NOTE | 2022-03-09 06:11 | NUR ---
Patient was compliant with his meds. Needs redirection at all times. Given PRN ativan due to restlessness/agitation x1 during the start of the shift. Noted with garbled speech, difficult to understand, nonsensical and unable to make needs known. He slept 3.45 hrs. He has episode of unsteady gait, high risk for falls, and unaware of safety. Maintained safety measures. Frequent checks done. Denies SI. No acute distress noted. will endorse to the next shift for continuity of care.
[2022-03-09 07:44] VITALS: BP 130/76
[2022-03-09] MEDS: FERROUS SULFATE 325 MG TABEC PO SCH ×2 (08:36→16:38)
[2022-03-09] MEDS: risperiDONE 1 MG TABLET PO SCH ×3 (08:36→16:38)
[2022-03-09] MEDS: busPIRone 5 MG TABLET PO SCH ×3 (08:36→16:38)
[2022-03-09] MEDS: BENZTROPINE MESYLATE 1 MG TABLET PO SCH ×3 (08:36→16:38)
[2022-03-09] MEDS: chlorproMAZINE 25 MG TABLET PO SCH ×4 (08:36→21:37)
[2022-03-09] MEDS: DIVALPROEX 500 MG TABLET.DR PO SCH ×3 (08:36→16:38)
[2022-03-09] MEDS: ASCORBIC ACID 500 MG TABLET PO SCH ×3 (08:36→16:38)
[2022-03-09] MEDS: ZINC SULFATE 220 MG CAPSULE PO SCH (08:39)
[2022-03-09] MEDS: SILVER SULFADIAZINE 1% CREAM 50 GM TP SCH ×2 (08:40→16:39)
[2022-03-09] MEDS: GLUCERNA SHAKE VANILLA 237 ML CAN PO SCH (08:40)
[2022-03-09] MEDS: ACETAMINOPHEN 325 MG TABLET PO PRN (12:29)
[2022-03-09] MEDS: LORAZEPAM 1 MG TABLET PO PRN (12:33)
[2022-03-09 17:12] VITALS: BP 140/77
--- NOTE | 2022-03-09 18:23 | NUR ---
received patient is pacing in hallway ,labile mumbling words taking to himself, patient remains irritable poor insight , stay in activity room most of shift,will continue close monitoring closely.
[2022-03-09 20:13] VITALS: BP 126/70
--- NOTE | 2022-03-09 23:43 | NUR ---
PATIENT RECEIVED PACING THE UNIT HALLWAY. CONFUSED AND DISORIENTED. RESPONDING TO INTERNAL STIMULI. MUMBLING TO HIMSELF. COMPLIANT WITH ALL PO MEDICATIONS WITH REINFORCEMENT. EASILY IRRITABLE AND UNPREDICTABLE. REQUIRES FREQUENT REDIRECTION. SAFETY MEASURES RENDERED, BED IN LOWEST POSITION, BED LOCKED, AND BED ALARM ON WHILE IN BED.
[2022-03-10 07:30] VITALS: BP 100/67
[2022-03-10] MEDS: busPIRone 5 MG TABLET PO SCH ×3 (08:34→17:29)
[2022-03-10] MEDS: DIVALPROEX 500 MG TABLET.DR PO SCH ×3 (08:34→17:29)
[2022-03-10] MEDS: BENZTROPINE MESYLATE 1 MG TABLET PO SCH ×3 (08:34→17:29)
[2022-03-10] MEDS: ASCORBIC ACID 500 MG TABLET PO SCH ×3 (08:34→17:29)
[2022-03-10] MEDS: chlorproMAZINE 25 MG TABLET PO SCH ×4 (08:34→20:05)
[2022-03-10] MEDS: risperiDONE 1 MG TABLET PO SCH ×3 (08:34→17:29)
[2022-03-10] MEDS: ZINC SULFATE 220 MG CAPSULE PO SCH (08:35)
[2022-03-10] MEDS: FERROUS SULFATE 325 MG TABEC PO SCH ×2 (08:35→17:29)
[2022-03-10] MEDS: SILVER SULFADIAZINE 1% CREAM 50 GM TP SCH ×2 (08:35→17:29)
[2022-03-10] MEDS: GLUCERNA SHAKE VANILLA 237 ML CAN PO SCH (08:35)
--- NOTE | 2022-03-10 12:28 | NUR ---
GPS: SPOKE WITH MG, THE ADMITTING NURSE AT [facility] WITH REGARDS TO PT DISCHARGE TONIGHT. PER MG, TO SEND DISCHARGE DOCUMENTS AND MED RECON THROUGH FAX. SENT IT PER REQUEST. PER PSYCHIATRIST TO DISCHARGE PT TONIGHT AFTER THE NIGHT DOSE OF THORAZINE IS GIVEN. ALL PAPERS DONE. COVID TEST ORDER MADE. SEFERINO MADE AWARE.
--- NOTE | 2022-03-10 12:40 | NUR ---
SPOKE WITH MG FROM [facility] THAT THEY WILL ACCEPT THE PT FOR LATE ADMISSION AND WILL ENDORSE TO THE NIGHT DUTY NURSES. SHE MENTIONED THAT PT NEEDS TO BE THERE PHYSICALLY IN ORDER FOR THEM TO ORDER HIS MEDS TO THE PHARMACY.
--- NOTE | 2022-03-10 12:49 | NUR ---
GPS: COORDINATED WITH [facility] AND PT WILL BE SCHEDULED FOR [employer] ARCHITECT AT 830PM. WILL ENDORSE TO INCOMING NURSE KARUNA. MD LISETH GENTILE MADE AWARE.
--- NOTE | 2022-03-10 13:29 | NUR ---
Social Work Discharge Note Pt will be discharged to [facility] ([phone]) [address] [place] [address] via ambulance transportation at about 8.30 pm. ERICK spoke with admin coordinators, Jessica and Shikha at the facility, and they agreed to accept the patient today in room 5C. Pt is aware and agreeable with discharge plans. Pt is alert and oriented to himself only is unable to plan for self-care at this time.He is willing to accept care at SNF. Pt denies any suicidal or homicidal ideation. Pt will follow-up at the facility with psychiatrist, Dr. Mcmahan and Salon Assistant, Belen. Pt presents with his baseline mood of anxiety but he is redirectable. Pharmacy: [facility] ([phone]) [id number] [id number]. Agustin GIPSON ordered ambulance and will endorse discharge to the evening shift.
[2022-03-10 15:58] VITALS: BP 102/66
--- NOTE | 2022-03-10 17:32 | NUR ---
GPS: PT HAD A GOOD DINNER. COMPLIANT WITH MEDS AND CARE. SEEN WALKING ALONG THE HALLWAY, GOES TO ACTIVITY ROOM AND PARTICIPATED WITH GROUP THERAPY BUT LIKES TO BE ON THE OTHER TABLE WHILE DOING HIS STUFFS. PT REDIRECTABLE. PT WILL BE DISCHARGE TONIGHT AT 2030 TO [facility]. AMBULANCE ALREADY COORDINATED TOGETHER WITH THE ADMITTING NURSE AT THE FACILITY.
[2022-03-10 20:14] VITALS: BP 101/64
--- NOTE | 2022-03-10 21:21 | NUR ---
Discharge Note Patient left MHU at 2114 via gurney calm, stable vital signs. Patient alert, oriented to situation, cooperative. Report given to the facility Casandra COSME, Charge nurse Ella. Belongings given, plan of care completed. Addendum: 03/10/22 at 2123 by YAJAIRA GUPTA RN HS medication administered per facility request.
== END 2022-03-10 21:27 | DRG 885 ==
LOC: ER 16:47 → GPS 02-20 01:11
PROVIDERS: ADMIT Psychiatry & Neurology Psychosomatic Medicine; ATTEND Nurse Practitioner Family
DX: F25.0 Schizoaffective disorder, bipolar type (principal); E44.0 Moderate protein-calorie malnutrition; L03.116 Cellulitis of left lower limb; Z68.22 Body mass index [BMI] 22.0-22.9, adult; E88.09 Other disorders of plasma-protein metabolism, not elsewhere classified; Z20.822 Contact with and (suspected) exposure to COVID-19; Z59.00 Homelessness unspecified; F29 Unspecified psychosis not due to a substance or known physiological condition; Z73.6 Limitation of activities due to disability; I70.0 Atherosclerosis of aorta
CPT/HCPCS: 36415; 70450; 71045; 80164; 83735; 84443; 84484; 85025; 85730; 87040; 87086; 93005; A4663; A6209; G0480; J2060; J2358; J3370; J3490; Q0161